=== PATIENT | male | born 2000 | race Caucasian/White ===

== ENCOUNTER 2022-02-19 19:09 | Emergency (ER) | payer OTHER ==
[~2022-02-19] VITALS: Ht 170.2 cm; Wt 83.9 kg
[~2022-02-19 19:09] MED LIST: [UNRECOGNIZED DRUG - REMARK]
[2022-02-19 19:30] VITALS: BP 150/82
--- NOTE | 2022-02-19 19:33 | NUR ---
TO LOBBY A/W BED AMBULATORY
--- NOTE | 2022-02-19 21:37 | NUR ---
PT TAKEN TO BED 4
--- NOTE | 2022-02-19 22:42 | NUR ---
DR RENAE EXAMINING PT AT BEDSIDE
[2022-02-19 22:50] VITALS: BP 150/82
--- NOTE | 2022-02-19 22:51 | NUR ---
NO NURSING INTERVENTIONS NEEDED.
--- NOTE | 2022-02-19 22:51 | NUR ---
Patient discharged with v/s stable. Written and verbal after care instructions given and explained. Patient verbalized understanding. Ambulatory with steady gait. All questions addressed prior to discharge. Advised to follow up with PMD. VSS, A/OX4, AMBULATORY, UNLABORED BREATHING, AND CALM DEMEANOR.
== END 2022-02-19 22:51 | disposition home or self-care (01) ==
LOC: MED 19:09
DX: D29.4 Benign neoplasm of scrotum (principal)
CPT/HCPCS: 76870; 81002; 99284; Q0092

== ENCOUNTER 2022-11-10 22:49 | Emergency (ER) | payer OTHER ==
[~2022-11-10] VITALS: Ht 170.2 cm; Wt 85.3 kg
[2022-11-10 22:54] VITALS: BP 134/83
--- NOTE | 2022-11-10 23:16 | NUR ---
Dr. Mcleod examining patient.
[2022-11-10 23:30] LABS: BASOPHILS # (AUTO) 0.1 K/uL (0.00-0.22); BASOPHILS % (AUTO) 0.7 % (0.0-2.0); EOSINOPHILS # (AUTO) 0.6 K/uL (0-0.4); EOSINOPHILS % (AUTO) 7.7 % (0.0-4.0); HEMATOCRIT 44.6 % (36-52); HEMOGLOBIN 15.2 g/dL (12.0-18.0); LYMPHOCYTES # (AUTO) 2.3 K/uL (2.0-11.5); LYMPHOCYTES % (AUTO) 30.6 % (20.5-51.1); MEAN CORPUSCULAR HEMOGLOBIN 30 pg (27-31); MEAN CORPUSCULAR HGB CONC 34 g/dL (33-37); MEAN CORPUSCULAR VOLUME 87.4 fL (80-94); MONOCYTES # (AUTO) 0.7 K/uL (0.8-1.0); MONOCYTES % (AUTO) 9.8 % (1.7-9.3); NEUTROPHILS # (AUTO) 3.8 K/uL (1.8-7.7); NEUTROPHILS % (AUTO) 51.2 % (42.2-75.2); PLATELET COUNT (AUTO) 245 K/uL (140-450); RED BLOOD CELL COUNT(AUTO) 5.11 MIL/uL (4.20-6.10); RED CELL DISTRIBUTION WIDTH 12.8 % (11.6-13.7); WHITE BLOOD COUNT (AUTO) 7.5 K/uL (4.5-11.0)
--- NOTE | 2022-11-10 23:30 | NUR ---
Patient returned back from X-ray.
--- NOTE | 2022-11-10 23:34 | NUR ---
Patient taken to bed 12.
[2022-11-10] MEDS ORDERED: IBUPROFEN 800 MG TAB PO ONE (23:35)
--- NOTE | 2022-11-10 23:45 | NUR ---
pt c/o left sided chest pain. per pt, stated 2 hours ago. pt denies any pmhx and any allergies.
[2022-11-10 23:50] LABS: ALBUMIN 4.4 g/dL (3.4-5.0); ANION GAP 12.5 (8-16); ASPARTATE AMINOTRANSFERASE 3 U/L (15-37); CARBON DIOXIDE 27.1 mmol/L (21-32); CHLORIDE 100 mmol/L (98-107); CREATININE 0.9 mg/dL (0.6-1.3); GFR ARICAN-AMERICAN 138 mL/min (>90); GLUCOSE 119 mg/dL (74-106); POTASSIUM 3.6 mmol/L (3.5-5.1); SODIUM SERUM 136 mmol/L (136-145); TOTAL BILIRUBIN 0.3 mg/dL (0.0-1.0); UREA NITROGEN, BLOOD 17 mg/dL (7-18)
[2022-11-11] MEDS ORDERED: IBUP-2213 PO (00:07)
[2022-11-11] MEDS ORDERED: METH-1681 PO (00:07)
[2022-11-11 00:19] VITALS: BP 134/83
--- NOTE | 2022-11-11 00:20 | NUR ---
Patient discharged with v/s stable. Written and verbal after care instructions given and explained. New prescription for Ibuprofen, Robaxin. Patient verbalized understanding. Ambulatory with gait steady. All questions addressed prior to discharge. Advised to follow up with PMD.
== END 2022-11-11 00:20 | disposition home or self-care (01) ==
LOC: MED 22:49
DX: R07.89 Other chest pain (principal); Z79.899 Other long term (current) drug therapy
CPT/HCPCS: 36415; 71045; 80053; 84484; 85025; 93005; 99285

== ENCOUNTER 2024-03-14 20:24 | Emergency (ER) | payer SELFPAY ==
[~2024-03-14] VITALS: Ht 170.2 cm; Wt 83.9 kg
[~2024-03-14 20:24] MED LIST changes: +IBUP-2213 PO; +METH-1681 PO
[2024-03-14 20:42] VITALS: BP 118/78; PULSE 78; RESP 20; TEMP 98.5; O2SAT 97
[2024-03-14] MEDS: LIDOCAINE/EPI 1% 1:100000 20 ML VIAL INJ ONE (22:16)
[2024-03-14] MEDS ORDERED: BACITRACIN OINT 500 UNITS/GM PKT TP ONE (23:07)
[2024-03-14 23:17] VITALS: BP 126/80; PULSE 88; RESP 16; TEMP 98.5; O2SAT 95
[2024-03-14] MEDS: BACITRACIN OINT 500 UNITS/GM PKT TP ONE (23:25)
== END 2024-03-14 23:18 | disposition home or self-care (01) ==
LOC: MED 20:24
DX: S02.2XXA Fracture of nasal bones, initial encounter for closed fracture (principal); S01.21XA Laceration without foreign body of nose, initial encounter; Z79.899 Other long term (current) drug therapy; W22.8XXA Striking against or struck by other objects, initial encounter; Y93.68 Activity, volleyball (beach) (court); Y92.39 Other specified sports and athletic area as the place of occurrence of the external cause; Y99.8 Other external cause status
CPT/HCPCS: 12013; 70160; 99283; J2001

== ENCOUNTER 2024-03-17 10:44 | Emergency (ER) | payer SELFPAY ==
[~2024-03-17] VITALS: Ht 170.2 cm; Wt 86.2 kg
[2024-03-17 10:48] VITALS: BP 127/81; PULSE 65; RESP 16; TEMP 97.3; O2SAT 99
== END 2024-03-17 11:42 | disposition home or self-care (01) ==
LOC: MED 10:44
DX: S01.21XA Laceration without foreign body of nose, initial encounter (principal); Z48.00 Encounter for change or removal of nonsurgical wound dressing; Z79.899 Other long term (current) drug therapy; X58.XXXD Exposure to other specified factors, subsequent encounter
CPT/HCPCS: 99281

== ENCOUNTER 2024-03-21 06:50 | Emergency (ER) | payer SELFPAY ==
[~2024-03-21] VITALS: Ht 170.2 cm; Wt 86.2 kg
[2024-03-21 07:02] VITALS: BP 133/83; PULSE 58; RESP 16; TEMP 97.6; O2SAT 99
[2024-03-21] MEDS: BACITRACIN OINT 500 UNITS/GM PKT TP ONE (08:27)
[2024-03-21 08:30] VITALS: BP 133/83; PULSE 58; RESP 16; TEMP 97.6; O2SAT 99
== END 2024-03-21 08:31 | disposition home or self-care (01) ==
LOC: MED 06:50
DX: S01.21XD Laceration without foreign body of nose, subsequent encounter (principal); Z48.02 Encounter for removal of sutures; Z79.899 Other long term (current) drug therapy; X58.XXXD Exposure to other specified factors, subsequent encounter
CPT/HCPCS: 99282